=== PATIENT | male | born 1995 | race Caucasian/White ===

== ENCOUNTER 2017-05-16 09:04 | Outpatient (CLI) | payer OTHER | END 2017-05-16 16:40 | disposition home or self-care (01) | LOC: HPC 09:04 | DX: R16.0 Hepatomegaly, not elsewhere classified (principal); R10.12 Left upper quadrant pain; R20.0 Anesthesia of skin; J45.909 Unspecified asthma, uncomplicated; F10.10 Alcohol abuse, uncomplicated; F14.90 Cocaine use, unspecified, uncomplicated | CPT/HCPCS: Z7500 ==

== ENCOUNTER 2017-06-21 12:56 | Emergency (ER) | payer OTHER ==
[2017-06-21] MEDS: DIPHTH/TET/ACEL PERTUSS (ADULT) 0.5 ML VIAL IM* (16:49)
[2017-06-21] MEDS: HYDROCODONE/APAP (5/325) TAB PO (16:50)
== END 2017-06-21 17:14 | disposition home or self-care (01) ==
LOC: FTE 12:56
DX: T24.212A Burn of second degree of left thigh, initial encounter (principal); J45.909 Unspecified asthma, uncomplicated; X16.XXXA Contact with hot heating appliances, radiators and pipes, initial encounter; Z23 Encounter for immunization
CPT/HCPCS: 90471; 90715; 99284-25

== ENCOUNTER 2017-07-10 01:43 | Emergency (ER) | payer OTHER ==
[2017-07-10] MEDS: HYDROCODONE/APAP (5/325) TAB PO (03:38)
== END 2017-07-10 04:04 | disposition home or self-care (01) ==
LOC: FTE 01:43
DX: T24.011D Burn of unspecified degree of right thigh, subsequent encounter (principal); J45.909 Unspecified asthma, uncomplicated; X19.XXXD Contact with other heat and hot substances, subsequent encounter
CPT/HCPCS: 99284; Z7502

== ENCOUNTER 2017-08-01 15:24 | Emergency (ER) | payer OTHER ==
[2017-08-01 19:34] LABS: URINE PH (Dip) POC 5.5 (5.0-8.5)
[2017-08-01 19:34] LABS: URINE BLOOD (Dip) POC Trace-lysed (NEGATIVE); URINE GLUCOSE (Dip) POC Negative (NEGATIVE); URINE KETONES (Dip) POC Negative (NEGATIVE); URINE LEUKOCYTE EST (Dip) POC Negative (NEGATIVE); URINE NITRITE (Dip) POC Negative (NEGATIVE); URINE TOTAL PROTEIN POC Negative (NEGATIVE)
== END 2017-08-01 20:32 | disposition home or self-care (01) ==
LOC: FTE 15:24
DX: N20.0 Calculus of kidney (principal); T24.211D Burn of second degree of right thigh, subsequent encounter; J45.909 Unspecified asthma, uncomplicated; X19.XXXD Contact with other heat and hot substances, subsequent encounter
CPT/HCPCS: 76705; 81003; 99284-25

== ENCOUNTER 2018-10-19 16:35 | Emergency (ER) | payer OTHER | END 2018-10-19 18:07 | disposition home or self-care (01) | LOC: FTE 16:35 | DX: H00.012 Hordeolum externum right lower eyelid (principal); J45.909 Unspecified asthma, uncomplicated | CPT/HCPCS: 99283; Z7502 ==

== ENCOUNTER 2018-10-24 22:47 | Emergency (ER) | payer OTHER ==
[2018-10-25 01:55] LABS: WHITE BLOOD COUNT 10.5 10^3/ul (4.8-10.8)
[2018-10-25 01:55] LABS: ADD MAN DIFF? NO; BASOPHIL # 0.1 10^3/ul (0.0-0.1); BASOPHILS % 0.6 % (0.0-2.0); EOSINOPHILS # 0.4 10^3/ul (0.0-0.5); EOSINOPHILS % 3.9 % (0.0-7.0); HEMATOCRIT 44.2 % (42.0-52.0); LYMPHOCYTES # 3.9 10^3/ul (0.8-2.9); LYMPHOCYTES % 37.2 % (15.0-51.0); MEAN CORPUSCULAR HEMOGLOBIN 31.6 pg (29.0-33.0); MEAN CORPUSCULAR HGB CONC 33.9 g/dl (32.0-37.0); MEAN CORPUSCULAR VOLUME 93.2 fl (82.0-101.0); MEAN PLATELET VOLUME 9.2 fl (7.4-10.4); MONOCYTE # 0.8 10^3/ul (0.3-0.9); MONOCYTES % 7.3 % (0.0-11.0); NEUTROPHIL # 5.3 10^3/ul (1.6-7.5); NEUTROPHILS % 50.8 % (39.0-77.0); PLATELET COUNT 356 10^3/UL (140-415); RED BLOOD COUNT 4.74 10^6/ul (4.70-6.10); RED CELL DISTRIBUTION WIDTH 12.4 % (11.5-14.5)
[2018-10-25 02:42] LABS: ALANINE AMINOTRANSFERASE 47 IU/L (13-69); ALBUMIN 4.6 g/dl (3.3-4.9); ALBUMIN/GLOBULIN RATIO 1.24; ALKALINE PHOSPHATASE 116 IU/L (42-121); ANION GAP 9 (5-13); ASPARTATE AMINO TRANSFERASE 46 IU/L (15-46); BILIRUBIN,INDIRECT 0.4 mg/dl (0-1.1); BILIRUBIN,TOTAL 0.4 mg/dl (0.2-1.3); BLOOD UREA NITROGEN 21 mg/dl (7-20); CALCIUM 9.3 mg/dl (8.4-10.2); CARBON DIOXIDE 27 mmol/L (21-31); CHLORIDE 109 mmol/L (97-110); CREATININE 0.87 mg/dl (0.61-1.24); Estimated GFR > 60 mL/min (>60); GLUCOSE 95 mg/dl (70-220); POTASSIUM 4.3 mmol/L (3.5-5.1); SODIUM 145 mmol/L (135-144); TOTAL PROTEIN 8.3 g/dl (6.1-8.1)
[2018-10-25 02:53] LABS: TROPONIN-I < 0.012 ng/ml (0.000-0.120)
== END 2018-10-25 03:31 | disposition home or self-care (01) ==
LOC: FTE 22:47
DX: R07.9 Chest pain, unspecified (principal); J45.909 Unspecified asthma, uncomplicated
CPT/HCPCS: 36415; 71045; 80053; 84484; 85025; 85378; 93005; 99285-25

== ENCOUNTER 2018-11-12 09:30 | Emergency (ER) | payer OTHER | END 2018-11-12 10:20 | disposition home or self-care (01) | LOC: FTE 09:30 | DX: B35.4 Tinea corporis (principal); L30.9 Dermatitis, unspecified; J45.909 Unspecified asthma, uncomplicated | CPT/HCPCS: 99282; Z7502 ==

== ENCOUNTER 2018-12-17 09:48 | Emergency (ER) | payer OTHER ==
[2018-12-17] MEDS: LIDOCAINE/MYLANTA 40 ML BTL PO (10:50)
[2018-12-17] MEDS: BELLADONNA/PHENOBARBITAL TAB PO (10:51)
[2018-12-17] MEDS: FAMOTIDINE 20 MG TAB PO (10:51)
[2018-12-17 10:53] LABS: ADD MAN DIFF? NO
[2018-12-17 10:59] LABS: BASOPHIL # 0.1 10^3/ul (0.0-0.1); BASOPHILS % 0.6 % (0.0-2.0); EOSINOPHILS # 0.3 10^3/ul (0.0-0.5); EOSINOPHILS % 3.8 % (0.0-7.0); HEMATOCRIT 45.9 % (42.0-52.0); HEMOGLOBIN 15.5 g/dl (14.0-18.0); LYMPHOCYTES # 2.6 10^3/ul (0.8-2.9); LYMPHOCYTES % 32.4 % (15.0-51.0); MEAN CORPUSCULAR HEMOGLOBIN 31.4 pg (29.0-33.0); MEAN CORPUSCULAR HGB CONC 33.8 g/dl (32.0-37.0); MEAN CORPUSCULAR VOLUME 92.9 fl (82.0-101.0); MEAN PLATELET VOLUME 9.3 fl (7.4-10.4); MONOCYTE # 0.6 10^3/ul (0.3-0.9); NEUTROPHIL # 4.5 10^3/ul (1.6-7.5); NEUTROPHILS % 55.8 % (39.0-77.0); PLATELET COUNT 356 10^3/UL (140-415); RED BLOOD COUNT 4.94 10^6/ul (4.70-6.10); RED CELL DISTRIBUTION WIDTH 12.7 % (11.5-14.5)
[2018-12-17 10:59] LABS: WHITE BLOOD COUNT 8.1 10^3/ul (4.8-10.8)
[2018-12-17 11:23] LABS: ALANINE AMINOTRANSFERASE 116 IU/L (13-69); ALBUMIN 4.5 g/dl (3.3-4.9); ALBUMIN/GLOBULIN RATIO 1.18; ALKALINE PHOSPHATASE 99 IU/L (42-121); ANION GAP 10 (5-13); ASPARTATE AMINO TRANSFERASE 265 IU/L (15-46); BILIRUBIN,INDIRECT 0.5 mg/dl (0-1.1); BILIRUBIN,TOTAL 0.5 mg/dl (0.2-1.3); BLOOD UREA NITROGEN 16 mg/dl (7-20); CALCIUM 9.7 mg/dl (8.4-10.2); CARBON DIOXIDE 26 mmol/L (21-31); CHLORIDE 106 mmol/L (97-110); CREATININE 0.78 mg/dl (0.61-1.24); Estimated GFR > 60 mL/min (>60); GLUCOSE 100 mg/dl (70-220); LIPASE 25 U/L (23-300); POTASSIUM 4.3 mmol/L (3.5-5.1); SODIUM 142 mmol/L (135-144); TOTAL PROTEIN 8.3 g/dl (6.1-8.1)
== END 2018-12-17 11:49 | disposition home or self-care (01) ==
LOC: FTE 09:48
DX: K29.70 Gastritis, unspecified, without bleeding (principal)
CPT/HCPCS: 80053; 83690; 85025; 99283

== ENCOUNTER 2019-02-09 18:01 | Emergency (ER) | payer OTHER | END 2019-02-09 19:02 | disposition home or self-care (01) | LOC: E/R 19:02 → FTE 18:01 | DX: J02.9 Acute pharyngitis, unspecified (principal); J45.909 Unspecified asthma, uncomplicated; R45.82 Worries | CPT/HCPCS: 99283; Z7502 ==